=== PATIENT | female | born 1965 | race Caucasian/White ===

== ENCOUNTER 2018-07-09 13:36 | Inpatient (IN) | payer OTHER ==
[~2018-07-09] VITALS: Ht 160 cm; Wt 56.7 kg
[2018-07-09 15:00] VITALS: BP 116/68
[2018-07-09] MEDS ORDERED: MAG HYDROX/AL HYDROX/SIMETH 30 ML LIQUID UDC PO PRN (15:00)
[2018-07-09] MEDS ORDERED: DIAZEPAM 5 MG TABLET PO PRN (15:00)
[2018-07-09] MEDS ORDERED: MAGNESIUM HYDROXIDE 30 ML LIQUID UDC PO PRN (15:00)
[2018-07-09] MEDS ORDERED: DIAZEPAM 10 MG TABLET PO PRN (15:00)
[2018-07-09] MEDS ORDERED: diphenhydrAMINE 50 MG CAPSULE PO PRN (15:00)
[2018-07-09] MEDS: THIAMINE HCL 100 MG TABLET PO SCH (15:00)
[2018-07-09] MEDS ORDERED: ONDANSETRON ODT 4 MG TAB.RAPDIS SL PRN (15:00)
[2018-07-09] MEDS ORDERED: MIRALAX 17 GM POWD.PACK PO PRN (15:00)
[2018-07-09] MEDS ORDERED: ONDANSETRON 4 MG/2 ML VIAL IM PRN (15:00)
[2018-07-09] MEDS ORDERED: LOPERAMIDE HCL 2 MG CAPSULE PO PRN ×2 (15:00)
[2018-07-09] MEDS ORDERED: LORAZEPAM 2 MG/1 ML VIAL IM PRN (15:00)
[2018-07-09] MEDS ORDERED: THIAMINE HCL 200 MG/2 ML VIAL IM ONE (15:00)
--- NOTE | 2018-07-09 15:00 | NUR ---
Pre-admission Assessment Patient is a 53 year old female presenting to [facility] for medically supervised withdrawal from ETOH and Ruth. VS: T 98.7 P 120 BP 116/68 SpO2 98% RA. She states she has been drinking Vodka 1500ml/day for 1.5 weeks, but has been drinking varied amounts daily for 3.5 years. Patient states her last drink was at 10:30 am, 240 mL. Patient appears mildly intoxicated but is already starting to display withdrawal sx including anxiety, elevated pulse, feeling like my skin is crawling. Patient has Ruth prescription for lower back pain (30-40mg per day as needed), but states that she does not take this medication daily. She is unkempt with uncombed hair. Denies seizure history. Denies SI/HI. Brought home meds of Cymbalta and Seroquel. States this is her 3rd time in treatment. Patient is A&O x 4 and cooperative with assessment. Admission will continue on the 3rd floor. Addendum: 07/09/18 at 1609 by CAROLYN VASQUEZ RN Prior to 1.5 weeks ago, patient was sober for 18 months.
[2018-07-09] MEDS ORDERED: QUET300T2 PO (15:18)
[2018-07-09] MEDS ORDERED: DULO60CA45 PO (15:18)
[2018-07-09] MEDS ORDERED: INDO25CA18 PO (15:18)
--- NOTE | 2018-07-09 15:26 | NUR ---
Admission Note: Admitted a 53 year old female for medically supervised withdrawal from ETOH under the care of Dr. Eddie Downing. Patient is alert and oriented x 4. Denies S/I or H/I noted. No AV hallucinations noted. Reports allergies to codeine and fay. Wishes to be FULL CODE. Follows a pescetarian/dairy diet at home. Patient appears disheveled, restless, unkempt, uncombed hair, hyperverbal but clear speech. She is noted with anxiety, agitation, and complains of skin crawling and feeling edgy. CIWA 11. Temp 98.7, Pulse 120, RR 17, BP 116/68, PL 6/10. She reports past medical hx of arthritis, neck surgery due to a work injury, depression and insomnia. Patient is also post-menopausal with her LMP was on 2017. She denies any seizure history, withdrawal induced delirium, cardiac complications related to withdrawal, overdoses and blackouts in the past. She reports that her PCP is Dr. Amezcua. Refused PNA and FLU vaccine at this time. Her longest period of sobriety was 8 years from 2006 to 2014. Patient appears mildly intoxicated with mild withdrawal symptoms. Medications brought from home: 1. Cymbalta 30 mg PO daily for depression 2. Seroquel 300 mg PO at HS for insomnia 3. Indomethacin 1 tab TID for arthritis Substance Use: 1. 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 Patient reports drinking 1.5L of Vodka daily for the past week and half. Last drink was on 07/09/2018 at 1000, 8 oz. 2. [place] 10/325 mg - since 3 years ago. Patient is prescribed 10/325 mg tab 3-4x a day as needed. Patient reports that she does not use this daily and only takes 1 to 2 tabs as needed for arthritic pain. Last use was on 07/08/2018 at 1400, 1 tab. Treatment History: 1. [facility] - 2006 2. [facility] - 2014 3. [facility] - 18 months ago x 30 days Motivation/Triggers for Relapse: Patient resides with her and 7 kids. 4 of her own and 3 adopted sons. She reports that the reason why she relapse was due to the of her father. She states "This took a toll on me and I couldn't handle feeling the pain, the sadness and the depression so I started drinking to numb the pain." She reports "I'm not very proud and not very happy with what I did. I kept it from my family. Nobody in the family drinks so I would hide Vodka in the closet and that's where I would drink until my caught me and that is why I'm here." She has attempted multiple times to be sober during the past week and a half but she states that she was afraid that she might go into DT's. She states that her drinking has affected her job performance, her relationship with her family, and her health. She plans on going back to [facility] and states that she will do everything and anything she can to stay sober. Orientation to the unit provided. Body search done. No contraband was found. Skin check done. No skin breakdown noted. Dr. Downing made aware of patient's arrival to the unit and admission orders were entered. Patient will be on PRN Valium at this time to manage her withdrawal symptoms. Safety precautions in place. Seizure precautions in place. Call light in reach. All needs met and attended. Will continue to monitor closely.
[2018-07-09 16:00] VITALS: BP 116/68
[2018-07-09] MEDS: CLONIDINE HCL 0.1 MG TABLET PO PRN (16:03)
[2018-07-09 16:04] LABS: *URINE HCG, QUAL NEGATIVE (NEGATIVE)
[2018-07-09] MEDS: MULTIVITAMINS,THERAPEUTIC TABLET PO SCH (16:04)
[2018-07-09] MEDS: FOLIC ACID 1 MG TABLET PO SCH (16:04)
[2018-07-09] MEDS: DIAZEPAM 10 MG TABLET PO PRN ×2 (16:04→20:51)
--- NOTE | 2018-07-09 16:04 | NUR ---
Clonidine 0.1mg/Valium 10 mg PO given: CIWA 11, patient is anxious, restless, hyperverbal and disorganized. She is complaining of "skin crawling" and with intermittent sweats. Gross tremors noted to BUE. Medicated patient with Clonidine 0.1mg PO and Valium 10 mg PO as ordered. Will monitor for effectiveness.
[2018-07-09 16:14] LABS: *AMPHETAMINE, URINE POSITIVE (NEGATIVE); *BARBITURATE, URINE NEGATIVE (NEGATIVE); *CANNABINOID, URINE NEGATIVE (NEGATIVE); *COCCAINE, URINE NEGATIVE (NEGATIVE); *OPIATE, URINE POSITIVE (NEGATIVE); *PHENCYCLIDINE SCREEN,URINE NEGATIVE (NEGATIVE)
--- NOTE | 2018-07-09 17:04 | NUR ---
Re-assessment: Clonidine/Valium CIWA 10, patient states that she still feels anxious with intermittent perspirations but lesser than 1 hour ago. PRN Clonidine and Valium effective.
[2018-07-09 17:07] LABS: BASOPHILS % (AUTO) 0.3 % (0.0-2.0); EOSINOPHILS % (AUTO) 0.7 % (0.0-7.0); HEMATOCRIT 38.2 % (31.2-41.9); HEMOGLOBIN 12.7 g/dL (10.9-14.3); LYMPHOCYTES # (AUTO) 2.8 K/uL (20.0-40.0); LYMPHOCYTES % (AUTO) 47.3 % (20.5-51.5); MEAN CORPUSCULAR HEMOGLOBIN 29.6 uug (24.7-32.8); MEAN CORPUSCULAR HGB CONC 33 g/dL (32.3-35.6); MEAN CORPUSCULAR VOLUME 89.3 fL (75.5-95.3); MONOCYTES # (AUTO) 0.4 K/uL (2.0-10.0); NEUTROPHILS # (AUTO) 2.6 K/uL (1.8-8.9); NEUTROPHILS % (AUTO) 44.7 % (38.5-71.5); PLATELET COUNT (AUTO) 296 K/uL (179-408); RED BLOOD CELL COUNT(AUTO) 4.27 MIL/uL (3.63-4.92); WHITE BLOOD COUNT (AUTO) 5.9 K/uL (3.8-11.8)
[2018-07-09 17:33] LABS: BILIRUBIN,TOTAL 0.3 mg/dL (0.2-1.0); CREATININE 0.8 mg/dL (0.6-1.3); POTASSIUM 3.2 mmol/L (3.5-5.1); TOTAL PROTEIN, SERUM 7.9 g/dL (6.4-8.2)
[2018-07-09 18:01] LABS: THYROID STIMULATING HORMONE 3.229 mIU/mL (0.358-3.740)
--- NOTE | 2018-07-09 18:57 | NUR ---
End of Shift Notes: Patient admitted today and was placed on PRNs at this time to manage her ETOH withdrawal symptoms. No adverse reactions noted. VS monitored closely. No significant abnormalities noted. Withdrawal symptoms were closely monitored. Initial CIWA 11, patient presented with anxiety, agitation, gross tremors, paresthesia, intermittent perspiration, restlessness and generalized discomfort. Medicated patient with Clonidine 0.1mg and Valium 10 mg PO as ordered with help. Last CIWA 10. Patient verbalizes that Valium has been effective in reducing her withdrawal symptoms. Unable to participate in group at this time due to her withdrawal symptoms. Appetite fair. All needs met and attended. Will continue to monitor closely.
--- NOTE | 2018-07-09 19:43 | NUR ---
START OF SHIFT NOTE Rcvd report from outgoing nurse. Pt is a 53 y/o female A/O to person, place, time, and purpose. Pt was admitted for medically supervised withdrawal from ETOH. Pt is scheduled to begin a Valium taper on 07/10. Pt has been presenting w/ anxiety, blunt affect, depressed and withdrawn mood, body aches, fine tremors, and diarrhea. Pt rcvd PRN Valium and Clonidine, and both were noted effective by outgoing nurse. Last CIWA 10 @ 1600. Call light was within reach. Pt will continue to be monitored and needs met.
[2018-07-09 20:00] VITALS: BP 104/71
[2018-07-09] MEDS: IBUPROFEN 600 MG TABLET PO PRN (20:51)
--- NOTE | 2018-07-09 20:51 | NUR ---
PRN VALIUM AND MOTRIN ADMINISTRATION Valium 10mg for withdrawal s/s and Motrin 600mg for body aches were given. Will reassess pt in 1hr.
[2018-07-09] MEDS ORDERED: QUETIAPINE FUMARATE 200 MG TABLET PO SCH (21:00)
--- NOTE | 2018-07-09 21:51 | NUR ---
PRN VALIUM AND MOTRIN REASSESSMENT Pt is in bed and states relief from anxiety and pain. She states that they are not completely gone but tolerable. Pt requesting her sleep medication.
[2018-07-09] MEDS ORDERED: POTASSIUM CHLORIDE 20 MEQ TAB.PRT.SR PO ONE (22:00)
--- NOTE | 2018-07-10 | NUR ---
CIWA DEFERRED Pt is in bed w/ her eyes closed. Pt's respirations are unlabored and even. Will continue to monitor pt.
--- NOTE | 2018-07-10 04:00 | NUR ---
CIWA DEFERRED. V/S REFUSED Pt is in bed w/ her eyes closed. Pt's respirations are unlabored and even. Will continue to monitor pt.
--- NOTE | 2018-07-10 07:14 | NUR ---
END OF SHIFT NOTE Endorsed pt to oncoming nurse. Pt is a 53 y/o female A/O to person, place, time, and purpose. Pt was admitted for medically supervised withdrawal from ETOH. Pt is scheduled to begin a Valium taper on 07/10. Pt continued presenting w/ anxiety, blunt affect, depressed and withdrawn mood, body aches, fine tremors, and diarrhea. Pt denies any S/I or H/I. PRN Valium and Clonidine were given and noted effective. Pts fluid intake was 1100ml and she slept for 8.5hrs. Last CIWA 12 @ 1999. Call light was within reach.
[2018-07-10 08:00] VITALS: BP 112/74
[2018-07-10] MEDS: IBUPROFEN 600 MG TABLET PO PRN (08:27)
[2018-07-10] MEDS: DIAZEPAM 10 MG TABLET PO PRN ×2 (08:27→13:18)
[2018-07-10] MEDS: MULTIVITAMINS,THERAPEUTIC TABLET PO SCH (08:27)
[2018-07-10] MEDS: THIAMINE HCL 100 MG TABLET PO SCH (08:27)
[2018-07-10] MEDS: FOLIC ACID 1 MG TABLET PO SCH (08:27)
--- NOTE | 2018-07-10 08:30 | NUR ---
START OF SHIFT; Received Pt A/O X 4. She presents with anxious mood and congruent affect. Fine tremors noted to bilateral hands. Her complexion is flushed. She reports anxiety,sweats,restlessness and body pain 5/10 on pain scale. CIWA 12. PRN Valium 10 mg PO given and PRN Ibuprofen given to manage symptoms. Encouraged increased fluids and rest today. Will continue to monitor and manage s/s of w/d.
[2018-07-10] MEDS ORDERED: TUBERCULIN,PURIF.PROT.DERIV. 5 TU/0.1 ML TEST ID ONE (09:00)
--- NOTE | 2018-07-10 09:30 | NUR ---
PRN CIWA 10 PRN Valium mildly effective. Pain 2/10 PRN Motrin effective.
--- NOTE | 2018-07-10 10:19 | NUR ---
Therapist prompted client to attend group therapy.
[2018-07-10 12:00] VITALS: BP 110/82
[2018-07-10] MEDS ORDERED: 3 DAY TAPER OF VALIUM-SERENITY PROTOCOL PO PRN (13:00)
[2018-07-10] MEDS: DULOXETINE 60 MG CAPSULE.DR PO SCH (13:17)
[2018-07-10 15:22] LABS: CREATININE 0.7 mg/dL (0.6-1.3); MAGNESIUM 2.1 mg/dL (1.8-2.4); POTASSIUM 4.4 mmol/L (3.5-5.1)
[2018-07-10] MEDS: DIAZEPAM 5 MG TABLET PO SCH ×2 (15:32→21:11)
[2018-07-10 16:00] VITALS: BP 110/82
[2018-07-10] MEDS: ACETAMINOPHEN 325 MG TABLET PO PRN (18:31)
[2018-07-10] MEDS: HYDROXYZINE PAMOATE 25 MG CAPSULE PO PRN (18:31)
[2018-07-10] MEDS: CLONIDINE HCL 0.1 MG TABLET PO PRN (18:31)
[2018-07-10] MEDS: OXYMETAZOLINE NASAL 0.05% 15 ML SPRAY NS PRN (18:36)
--- NOTE | 2018-07-10 18:40 | NUR ---
Pt reports anxiety,tremors restlessness, body aches, stuffy nose and sweats. PRN Clonidine,Vistaril,Tylenol and Nasal spray administered as ordered.
--- NOTE | 2018-07-10 18:53 | NUR ---
END OF SHIFT: Pt started modified Valium taper today to manage s/s of w/d which include sweats,tremors,anxiety,restlessness and fatigue. Last CIWA 10. PRN Valium given prior to taper starting and effective.She rested most of shift as encouraged and was compliant with increased fluids. PRN Vistaril,Clonidine,Tylenol and nasal spray given to help reduce symptoms.Will endorse reassessment of PRNS to oncoming yard switch operator nurse.
--- NOTE | 2018-07-10 19:38 | NUR ---
START OF SHIFT Patient is a 53-year-old female admitted on 07/09/18 for ETOH withdrawal. Patient is currently on a 3-day Valium taper, tolerating well; today is day 1 of taper. Patient received the following PRN medications today: Motrin, Tylenol, Vistaril, Clonidine, and Afrin nasal spray; all noted to be effective. Patient's last CIWA was 10 per endorsement. Upon assessment, patient states that she was "anxious earlier because I got off the phone with my ." Patient reports "chronic lower back pain" related to arthritis. When asked what helps relieve or alleviate the pain, patient states that other than "physician prescribed Indomethacin, I just have to live with it." Patient is on fall and seizure precautions with no history of seizure. Safety measures in place, side rails up x2, bed locked in low position, call light within reach. Will continue to monitor.
--- NOTE | 2018-07-10 19:40 | NUR ---
PRN REASSESSMENT Patient reports improvement in anxiety, sweats, restlessness, body aches and nasal congestion. PRN medications noted to be effective. Safety measures in place, side rails up x2, bed locked in low position, call light within reach. Will continue to monitor.
[2018-07-10 20:00] VITALS: BP 96/64
[2018-07-10] MEDS: QUETIAPINE FUMARATE 200 MG TABLET PO SCH (21:11)
[2018-07-10] MEDS ORDERED: INDOMETHACIN 25 MG CAPSULE ONE (21:29)
[2018-07-10] MEDS: INDOMETHACIN 25 MG CAPSULE PO PRN (21:43)
--- NOTE | 2018-07-10 21:43 | NUR ---
PRN INDOMETHACIN Patient reports 7/10 lower back pain "aching and throbbing." PRN Indomethacin 25 mg given PO. Safety measures in place, side rails up x2, bed locked in low position, call light within reach. Will monitor for effectiveness.
--- NOTE | 2018-07-10 22:43 | NUR ---
PRN INDOMETHACIN REASSESSMENT Patient reports 5/10 lower back pain. PRN Indomethacin noted to be effective. Safety measures in place, side rails up x2, bed locked in low position, call light within reach. Will continue to monitor.
[2018-07-11] VITALS: BP 99/63
[2018-07-11 04:00] VITALS: BP 107/60
--- NOTE | 2018-07-11 07:20 | NUR ---
END OF SHIFT Patient is a 53-year-old female admitted on 07/09/18 for ETOH withdrawal. Patient is currently on a 3-day Valium taper, tolerating well; today will be second day of taper. Patient received PRN Indomethacin last night for lower back ache, noted to be effective. Patient's last CIWA was 11. Patient slept for 9 hours, total intake of 700mL, void x1, stool x0. Patient is on fall and seizure precautions with no history of seizure. Safety measures in place, side rails up x2, bed locked in low position, call light within reach. Will endorse to day shift.
[2018-07-11] MEDS: PANTOPRAZOLE SODIUM 40 MG TABLET.DR PO SCH (07:24)
--- NOTE | 2018-07-11 07:30 | NUR ---
Start of Shift Patient is a 53yr old female who was admitted for a medically supervised withdrawal from ETOH. Pt has been placed on a 5 day Valium taper and this is day 2. Last CWIA 11 at 1999. Pt slept 9 hours last night. Her withdrawal symptoms include lethargy, chills, diaphoresis, decreased appetite, restless legs , neck and low back pain, and bilateral hand tremors. She has a flat affect and depressed mood. . Encouraged Pt to attend group therapies to identify positive coping skill to maintain sobriety. Continue to follow MD plan of care and offer support and encouragement as needed. All safety measures in place, bed locked, low positions, side rails up X2. Will continue to monitor for withdrawal symptoms.
[2018-07-11 08:00] VITALS: BP 117/75
[2018-07-11] MEDS: FOLIC ACID 1 MG TABLET PO SCH (09:10)
[2018-07-11] MEDS: MULTIVITAMINS,THERAPEUTIC TABLET PO SCH (09:10)
[2018-07-11] MEDS: DULOXETINE 60 MG CAPSULE.DR PO SCH (09:10)
[2018-07-11] MEDS: THIAMINE HCL 100 MG TABLET PO SCH (09:10)
[2018-07-11] MEDS: DIAZEPAM 5 MG TABLET PO SCH ×2 (09:11→20:28)
[2018-07-11] MEDS: OXYMETAZOLINE NASAL 0.05% 15 ML SPRAY NS PRN (09:14)
[2018-07-11] MEDS: INDOMETHACIN 25 MG CAPSULE PO PRN ×2 (10:01→20:28)
[2018-07-11] MEDS: ACETAMINOPHEN 325 MG TABLET PO PRN (10:04)
--- NOTE | 2018-07-11 10:04 | NUR ---
PRN Indocin 25 mg PO for back and neck pain #6/10 PRN Tylenol 650 mg PO for back and neck pain #6/10.
--- NOTE | 2018-07-11 11:00 | NUR ---
Reassess Indocin and Tylenol- Pt reports pain now #2/10. Medications effective.
[2018-07-11 12:00] VITALS: BP 139/86
[2018-07-11] MEDS: CLONIDINE HCL 0.1 MG TABLET PO PRN (12:25)
--- NOTE | 2018-07-11 12:26 | NUR ---
PRN Clonidine 0.1 mg PO for anxiety.
--- NOTE | 2018-07-11 13:26 | NUR ---
Reassess Clonidine- Pt reports anxiety improved. Continue to follow MD plan of care and offer support and encouragement as needed.
[2018-07-11 15:07] LABS: HEPATITIS B SURFACE AG Negative (Negative)
[2018-07-11 16:58] VITALS: BP 117/75
[2018-07-11] MEDS: HYDROXYZINE PAMOATE 25 MG CAPSULE PO PRN (17:03)
--- NOTE | 2018-07-11 17:03 | NUR ---
PRN Vistaril 50mg PO administered for anxiety, mb increased P 106 and difficulty concentrating. Call light within reach. Primary nurse to reassess medication.
--- NOTE | 2018-07-11 18:00 | NUR ---
Reassess Garciataril- Pt reports anxiety improved. She is in her room watching TV.
--- NOTE | 2018-07-11 18:31 | NUR ---
End of Shift Patient is a 26yr old female who was admitted for a medically supervised withdrawal from ETOH. Pt has been placed on a 5 day Valium taper and this is day 2. Last CWIA 11 at 1600. PRN given today; Indocin, Tylenol, Vistaril, and Clonidine. Her withdrawal symptoms include lethargy, chills, diaphoresis, decreased appetite, restless legs , difficulty concentrating, flushed face, neck and low back pain, and bilateral hand tremors. She has a flat affect and depressed mood. Encouraged Pt to attend group therapies to identify positive coping skill to maintain sobriety. Continue to follow MD plan of care and offer support and encouragement as needed. PO fluids 2000ml, void x5, no BM. All safety measures in place, bed locked, low positions, side rails up X2. Will continue to monitor for withdrawal symptoms. Endorsed to PM shift.
--- NOTE | 2018-07-11 19:40 | NUR ---
START OF SHIFT Patient is a 53-year-old female admitted on 07/09/18 for ETOH withdrawal. Patient is currently on a 3-day Valium taper, tolerating well; today is second day of taper. Patient received the following PRN medications today: Indocin, Tylenol, Vistaril, and Clonidine; all noted to be effective. Patient's last CIWA was 11, per endorsement. Upon assessment, patient reports that lower back ache is still there. Patient appears disheveled and unbathed, room is cluttered. Patient reports anxiety and difficulty sleeping, stating, I usually take 300mg of Seroquel but the doctor here lowered it to 200mg. Patient is on fall and seizure precautions with no history of seizure. Safety measures in place, side rails up x2, bed locked in low position, call light within reach. Will continue to monitor.
[2018-07-11 20:00] VITALS: BP 123/78
[2018-07-11] MEDS: QUETIAPINE FUMARATE 200 MG TABLET PO SCH (20:28)
--- NOTE | 2018-07-11 20:28 | NUR ---
PRN INDOMETHACIN Patient reports lower back pain 7/10, "aching and throbbing." PRN Indomethacin given PO. Safety measures in place, call light within reach. Will monitor for effectiveness.
--- NOTE | 2018-07-11 21:28 | NUR ---
PRN INDOMETHACIN REASSESSMENT Patient reports lower back pain slightly improved, 5/10. PRN Indomethacin noted to be effective. Safety measures in place, side rails up x2, bed locked in low position, call light within reach. Will continue to monitor.
[2018-07-12] VITALS: BP 113/66
--- NOTE | 2018-07-12 04:00 | NUR ---
VITALS REFUSED Patient refused 0400 vitals. Patient verbalized having difficulty with waking up early in the morning and falling back asleep. Respirations even and unlabored, 16/min. Safety measures in place, side rails up x2, bed locked in low position, call light within reach. Will continue to monitor.
[2018-07-12] MEDS: PANTOPRAZOLE SODIUM 40 MG TABLET.DR PO SCH (07:16)
[2018-07-12] MEDS: OXYMETAZOLINE NASAL 0.05% 15 ML SPRAY NS PRN (07:18)
--- NOTE | 2018-07-12 07:18 | NUR ---
PRN AFRIN NASAL SPRAY Patient reports nasal congestion and requests her nasal spray. PRN Afrin given for nasal application. Safety measures in place, side rails up x2, bed locked in low position, call light within reach. Will endorse for reassessment.
--- NOTE | 2018-07-12 07:20 | NUR ---
END OF SHIFT Patient is a 53-year-old female admitted on 07/09/18 for ETOH withdrawal. Patient is currently on a 3-day Valium taper, tolerating well; today is last day of taper. Patient received PRN Indocin, noted to be effective. Patient received PRN Afrin nasal spray at change of shift; to be reassessed in one hour. Patient slept for 9 hours, total intake of 750mL, void x1, stool x0. Patient reports that she has decided to go to treatment after discharge stating, Ill take it one week at a time. Patient is on fall and seizure precautions with no history of seizure. Safety measures in place, side rails up x2, bed locked in low position, call light within reach. Will endorse to day shift. Addendum: 07/12/18 at 0729 by JADE CARROLL LVN He HERNANDEZ 12.
--- NOTE | 2018-07-12 07:48 | NUR ---
START OF SHIFT NOTE Received report from night nurse, 53 year old female admitted for ETOH withdrawal. Patient continues with 3 days Valium tolerating well. Per endorsement patient received PRN indomethacin effective per night nurse, slept for 9 hours, last . Received patient alert awake oriented x4, anxious, agitated, sweats, bilateral hand tremors. Patient is due for her scheduled medications. Educated patient with current plan of the day and medications regimen. Patient verbalized understanding. All safety measures in place. Will cont with plan of care.
[2018-07-12 08:00] VITALS: BP 114/83
--- NOTE | 2018-07-12 08:18 | NUR ---
AFRIN REASSESSMENT Patient reported nasal spray was effective congestion and nasal spray was subsided.
[2018-07-12] MEDS: THIAMINE HCL 100 MG TABLET PO SCH (08:34)
[2018-07-12] MEDS: DULOXETINE 60 MG CAPSULE.DR PO SCH (08:35)
[2018-07-12] MEDS: MULTIVITAMINS,THERAPEUTIC TABLET PO SCH (08:35)
[2018-07-12] MEDS: FOLIC ACID 1 MG TABLET PO SCH (08:35)
[2018-07-12] MEDS ORDERED: DIAZEPAM 5 MG TABLET PO SCH (09:00)
--- NOTE | 2018-07-12 10:11 | NUR ---
Therapist prompted client to attend all group therapy sessions.
[2018-07-12 12:00] VITALS: BP 127/90
[2018-07-12] MEDS ORDERED: HYDR-3895 PO (13:57)
[2018-07-12] MEDS ORDERED: QUET200T PO (13:57)
[2018-07-12] MEDS ORDERED: CLON0.1T14 PO (13:57)
[2018-07-12] MEDS ORDERED: PANT40TA2 PO (13:57)
[2018-07-12] MEDS ORDERED: DULO60CA45 PO (13:57)
[2018-07-12] MEDS ORDERED: IBUPROFEN 800 MG TABLET PO PRN (14:00)
[2018-07-12] MEDS ORDERED: IBUP-1957 PO (14:10)
[2018-07-12 16:00] VITALS: BP 140/85
[2018-07-12] MEDS: HYDROXYZINE PAMOATE 25 MG CAPSULE PO PRN (17:08)
[2018-07-12] MEDS: CLONIDINE HCL 0.1 MG TABLET PO PRN (17:09)
--- NOTE | 2018-07-12 17:09 | NUR ---
PRN CLONIDINE/VISTARIL Blood pressure noted 149/102, HR-117,patient reported feeling anxious, agitation, sweats. PRN Clonidine 0.1mg PO and Vistaril 50mg PO administered as ordered. Will cont to monitor and reassess for effectiveness.
--- NOTE | 2018-07-12 18:09 | NUR ---
CLONIDINE/VISTARIL REASSESSMENT Blood pressure noted 139/92, HR-98, per patient medications were effective feeling less anxious and agitated.
--- NOTE | 2018-07-12 19:24 | NUR ---
END OF SHIFT NOTE Gave report to night nurse, 53 year old female admitted for ETOH and continues with Valium taper tolerating well. Patient presented with anxiety, agitation, fatigue, restless, cloths thrown on the floor, diaphoretic. Patient received her scheduled medications along with PRN Vistaril and Clonidine noted to be effective. Patient's urine came out positive for amphetamine clarified with patient, patient denies any history of taking amphetamine. Last CIWA score was 10 at 1600. Patient attended groups activities. Vital signs WNL. Patient denies any SI/HI. Encourage PO fluids as tolerated. All needs are attended. Endorse patient to night nurse in stable condition.
--- NOTE | 2018-07-12 19:40 | NUR ---
START OF SHIFT Patient is a 53-year-old female admitted on 07/09/18 for ETOH withdrawal. Patient has completed a 3-day Valium taper, tolerated well; patient is scheduled for discharge tomorrow. Patient received PRN Clonidine and Vistaril today, both noted to be effective. Patient's last CIWA was 10, per endorsement. Upon assessment, patient reports lower back ache. Patient verbalizes feeling anxious and excited for discharge tomorrow. Patient continues to receive Seroquel daily HS for difficulty sleeping. Patient is on fall and seizure precautions with no history of seizure. Safety measures in place, side rails up x2, bed locked in low position, call light within reach. Will continue to monitor.
[2018-07-12 20:00] VITALS: BP 102/76
[2018-07-12] MEDS: QUETIAPINE FUMARATE 200 MG TABLET PO SCH (21:45)
[2018-07-12] MEDS ORDERED: INDOMETHACIN 25 MG CAPSULE PO SCH (22:20)
[2018-07-12] MEDS ORDERED: INDOMETHACIN 25 MG CAPSULE PO PRN (23:00)
[2018-07-12] MEDS ORDERED: INDOMETHACIN 25 MG CAPSULE PO ONE (23:30)
[2018-07-13] VITALS: BP 108/65
--- NOTE | 2018-07-13 04:00 | NUR ---
VITALS REFUSED Patient refuses vitals at 0400, respirations even and unlabored, 14/min. Safety measures in place, side rails up x2, bed locked in low position, call light within reach. Will continue to monitor.
[2018-07-13] MEDS: OXYMETAZOLINE NASAL 0.05% 15 ML SPRAY NS PRN (06:55)
--- NOTE | 2018-07-13 06:55 | NUR ---
PRN AFRIN NASAL SPRAY Patient reports nasal congestion and requests Afrin. PRN Afrin given for congestion. Safety measures in place, side rails up x2, bed locked in low position, call light within reach. Will endorse to day shift for reassessment.
--- NOTE | 2018-07-13 07:00 | NUR ---
END OF SHIFT Patient is a 53-year-old female admitted on 07/09/18 for ETOH withdrawal. Patient has completed a 3-day Valium taper yesterday, tolerated well; patient is scheduled for discharge this morning. Patient received Afrin nasal spray at 0655, reassessment endorsed to day shift. Patient's last CIWA was 9. Patient slept for 9 hours, total intake of 1,250mL, void x1, stool x0. Patient is on fall and seizure precautions with no history of seizure. Safety measures in place, side rails up x2, bed locked in low position, call light within reach. Will endorse to day shift.
[2018-07-13] MEDS: PANTOPRAZOLE SODIUM 40 MG TABLET.DR PO SCH (07:16)
[2018-07-13 08:00] VITALS: BP 114/78
--- NOTE | 2018-07-13 08:04 | NUR ---
START OF SHIFT NOTE Received report from night nurse, 53 year old female admitted for ETOH withdrawal. Patient completed her 3 days Valium tolerated well. Per endorsement patient received PRN indomethacin effective per night nurse, slept for 9 hours, last CIWA-9. Received patient alert awake oriented x4, Patient is schedule for discharge today she appears happy but little anxious about change, educated the patient on relaxation technique,patient verbalized understanding. All safety measures in place. Will cont with plan of care.
[2018-07-13] MEDS: FOLIC ACID 1 MG TABLET PO SCH (08:22)
[2018-07-13] MEDS: MULTIVITAMINS,THERAPEUTIC TABLET PO SCH (08:22)
[2018-07-13] MEDS: DULOXETINE 60 MG CAPSULE.DR PO SCH (08:22)
[2018-07-13] MEDS: THIAMINE HCL 100 MG TABLET PO SCH (08:22)
--- NOTE | 2018-07-13 09:30 | NUR ---
DISCHARGE NOTE Patient has been discharge from [facility] in stable condition. Vital signs WNL. Patient denies any SI/HI. All paper work has been completed signed and dated. Patient left with all of her belongings, medications and prescription. Patient has been discharge from [facility] on 07/13/18 at 0930. has been notified.
== END 2018-07-13 09:30 | disposition other institution (70) | DRG 895 ==
LOC: SRC 14:02
PROVIDERS: ADMIT Family Medicine Addiction Medicine; ATTEND Family Medicine Addiction Medicine
PROC: HZ2ZZZZ Detoxification Services for Substance Abuse Treatment (ICD-10-PCS; principal; 2018-07-09)
PROC: HZ41ZZZ Group Counseling for Substance Abuse Treatment, Behavioral (ICD-10-PCS; 2018-07-10)
PROC: HZ31ZZZ Individual Counseling for Substance Abuse Treatment, Behavioral (ICD-10-PCS; 2018-07-12)
DX: F10.229 Alcohol dependence with intoxication, unspecified (principal); F33.2 Major depressive disorder, recurrent severe without psychotic features; F10.230 Alcohol dependence with withdrawal, uncomplicated; F11.23 Opioid dependence with withdrawal; Y90.3 Blood alcohol level of 60-79 mg/100 ml; E87.6 Hypokalemia; G47.00 Insomnia, unspecified; M06.9 Rheumatoid arthritis, unspecified; Z88.6 Allergy status to analgesic agent; Z91.018 Allergy to other foods; N95.9 Unspecified menopausal and perimenopausal disorder; F15.10 Other stimulant abuse, uncomplicated; Z79.899 Other long term (current) drug therapy; M19.90 Unspecified osteoarthritis, unspecified site; F17.200 Nicotine dependence, unspecified, uncomplicated
CPT/HCPCS: 36415; 70030-TC; 80307; 80324; 80361; 83690; 83735; 84443; 84703; 85025; 86592; 86705; 86803; 87340; 87806; G0480; J3411